=== PATIENT | female | born 1980 | race Caucasian/White ===

== ENCOUNTER 2017-03-13 19:57 | Emergency (ER) | payer OTHER ==
[~2017-03-13] VITALS: Ht 157.5 cm; Wt 57.6 kg
[2017-03-13] MEDS ORDERED: ONDANSETRON PF 4 MG/2 ML VIAL. ONE (20:24)
[2017-03-13] MEDS ORDERED: IV NORMAL SALINE 1,000ML 1,000 ML IV ONE ×2 (20:45→21:45)
[2017-03-13] MEDS ORDERED: KETOROLAC 30 MG/ML VIAL. IV ONE (20:45)
[2017-03-13] MEDS ORDERED: ONDANSETRON PF 4 MG/2 ML VIAL. IV ONE (20:45)
[2017-03-13 20:52] LABS: BASO % 0 % (0-3); EOS % 0 % (0-3); HEMOGLOBIN 15.4 g/dL (12.0-15.5); LYMPH # 0.5 x10^3/uL (1.0-4.8); LYMPH % 6 % (24-48); MEAN CORPUSCULAR HEMOGLOBIN 30 pg (25-35); MEAN CORPUSCULAR HGB CONC 35 g/dL (31-37); MEAN CORPUSCULAR VOLUME 87 fL (79-100); MONO # 0.6 x10^3/uL (0.0-1.1); MONO % 7 % (0-9); NEUT # 7.4 x10^3uL (1.8-7.7); NEUT % 87 % (31-73); PLATELET COUNT 187 x10^3/uL (140-400); RED BLOOD COUNT 5.08 x10^6/uL (3.50-5.40); RED CELL DISTRIBUTION WIDTH 13.1 % (11.5-14.5); WHITE BLOOD COUNT 8.5 x10^3/uL (4.0-11.0)
[2017-03-13 20:58] LABS: ALBUMIN 4.1 g/dL (3.4-5.0); CALCIUM 8.9 mg/dL (8.5-10.1); CREATININE 0.8 mg/dL (0.6-1.0); GFR 82.1; TOTAL BILIRUBIN 0.8 mg/dL (0.2-1.0); TOTAL PROTEIN 8.1 g/dL (6.4-8.2)
[2017-03-13 21:01] LABS: POTASSIUM 2.9 mmol/L (3.5-5.1)
--- NOTE | 2017-03-13 21:31 | PHYS DOC ---
Adult General Chief Complaint Chief Complaint: ABDOMINAL PAIN HPI HPI Patient is a 36 year old female who presents with nausea & vomiting. The patient states she has been ill with sinus congestion & left ear pain beginning yesterday. Today she has sweats/chills, sore throat, nausea, vomiting, & diarrhea. She reports 3 episodes of vomiting & diarrhea prior to presentation here. She denies cough, chest pain, shortness of breath, abdominal pain, dysuria. She was seen by PCP this morning & given amoxicillin & ear drop prescriptions. She reports onset of GI symptoms after that visit, has taken 1 dose of amoxicillin today. She denies significant past medical history, reports previous appendectomy & tubal ligation. Review of Systems Review of Systems Constitutional: Reports sweats and chills Eyes: Denies drainage HENT: Reports nasal congestion and sore throat Respiratory: Denies cough or shortness of breath Cardiovascular: Denies chest pain or edema GI: Reports nausea, vomiting, diarrhea. Denies abdominal pain : Denies dysuria or hematuria Musculoskeletal: Denies back pain or joint pain Integument: Denies rash or skin lesions Neurologic: Denies headache, focal weakness or sensory changes All other systems were reviewed and found to be within normal limits, except as documented in this note. Current Medications Current Medications Current Medications Medications (Trade) Dose Ordered Sig/Daniel Start Time Stop Time Status Last Admin Dose Admin Ketorolac Tromethamine (Toradol) 30 mg 1X ONCE 03/13/17 20:45 03/13/17 20:57 DC 03/13/17 20:55 30 MG Ondansetron HCl (Zofran) 4 mg 1X ONCE 03/13/17 20:45 03/13/17 20:57 DC 03/13/17 20:32 4 MG Sodium Chloride 1,000 ml @ 1,000 mls/hr 1X ONCE 03/13/17 20:45 03/13/17 21:44 03/13/17 20:32 1,000 MLS/HR Allergies Allergies Allergies Coded Allergies Type Severity Reaction Last Updated Verified No Known Drug Allergies 03/13/17 No Physical Exam Physical Exam Constitutional: Well developed, well nourished, no acute distress, non-toxic appearance. HENT: Normocephalic, atraumatic, bilateral external ears normal, TMs clear bilaterally, EAC is erythematous on the left without drainage, oropharynx moist , posterior oropharynx mild erythema without tonsillar enlargement/exudate, no focal sinus tenderness, nose normal. Eyes: conjunctiva normal, no discharge. Neck: supple, no stridor. no meningismus Cardiovascular: RRR, no murmurs, no edema. Lungs & Thorax: LCTAB, no wheezing, no respiratory distress. Abdomen: soft, no focal abdominal tenderness with palpation, no rebound/guarding , no masses or pulsatile masses, nondistended. Skin: Warm, dry, no erythema, no rash. Back: No CVA tenderness. Extremities: No tenderness, no edema. Neurologic: Alert and oriented X 3, no focal deficits noted. Psychologic: Affect normal, judgement normal, mood normal. Current Patient Data Lab Results Laboratory Tests Test 03/13/17 20:18 03/13/17 20:25 White Blood Count 8.5 x10^3/uL (4.0-11.0) Red Blood Count 5.08 x10^6/uL (3.50-5.40) Hemoglobin 15.4 g/dL (12.0-15.5) Hematocrit 44.0 % (36.0-47.0) Mean Corpuscular Volume 87 fL (79-100) Mean Corpuscular Hemoglobin 30 pg (25-35) Mean Corpuscular Hemoglobin Concent 35 g/dL (31-37) Red Cell Distribution Width 13.1 % (11.5-14.5) Platelet Count 187 x10^3/uL (140-400) Neutrophils (%) (Auto) 87 % (31-73) H Lymphocytes (%) (Auto) 6 % (24-48) L Monocytes (%) (Auto) 7 % (0-9) Eosinophils (%) (Auto) 0 % (0-3) Basophils (%) (Auto) 0 % (0-3) Neutrophils # (Auto) 7.4 x10^3uL (1.8-7.7) Lymphocytes # (Auto) 0.5 x10^3/uL (1.0-4.8) L Monocytes # (Auto) 0.6 x10^3/uL (0.0-1.1) Eosinophils # (Auto) 0.0 x10^3/uL (0.0-0.7) Basophils # (Auto) 0.0 x10^3/uL (0.0-0.2) Sodium Level 139 mmol/L (136-145) Potassium Level 2.9 mmol/L (3.5-5.1) *L Chloride Level 102 mmol/L (98-107) Carbon Dioxide Level 24 mmol/L (21-32) Anion Gap 13 (6-14) Blood Urea Nitrogen 7 mg/dL (7-20) Creatinine 0.8 mg/dL (0.6-1.0) Estimated GFR (Cockcroft-Gault) 82.1 BUN/Creatinine Ratio 9 (6-20) Glucose Level 142 mg/dL (70-99) H Calcium Level 8.9 mg/dL (8.5-10.1) Total Bilirubin 0.8 mg/dL (0.2-1.0) Aspartate Amino Transferase (AST) 61 U/L (15-37) H Alanine Aminotransferase (ALT) 151 U/L (14-59) H Alkaline Phosphatase 156 U/L (46-116) H Total Protein 8.1 g/dL (6.4-8.2) Albumin 4.1 g/dL (3.4-5.0) Albumin/Globulin Ratio 1.0 (1.0-1.7) Lipase 104 U/L (73-393) Group A Streptococcus Rapid Negative (NEGATIVE) EKG EKG [] Radiology/Procedures Radiology/Procedures [] Course & Med Decision Making Course & Med Decision Making Pertinent Labs and Imaging studies reviewed. (See chart for details) The patient presents with illness. She was afebrile, tachycardic, low normal blood pressure. Gave IV fluids, zofran, toradol. She tested positive for influenza A. Labs showed hypokalemia & transaminitis. She denies history of liver disease. This may be related to acute viral illness but recommend follow up with PCP for repeat labs when she recovers from illness. She had no focal RUQ tenderness on exam today. She felt better after treatment here & hydration with 2L NS. With recent vomiting will give prescription for potassium replacement. We did discuss tamiflu & she wished to receive a prescription. Recommend rest, hydration, tylenol/ibuprofen for pain or fever, zofran PRN for nausea. Follow up with PCP in 2-3 days. Come back for high fever, severe pain , uncontrolled vomiting, severe shortness of breath, any otherwise worsening condition. Discharged home in stable condition. [] Dragon Disclaimer Dragon Disclaimer This electronic medical record was generated, in whole or in part, using a voice recognition dictation system. Departure Departure: Impression: Primary Impression: Influenza A Additional Impressions: Hypokalemia Transaminitis Nausea & vomiting Disposition: 01 HOME, SELF-CARE Condition: STABLE Referrals: JAMIN WATTERS MD (PCP) Patient Instructions: Influenza A (H1N1) Additional Instructions: You were seen in the emergency department today. You were diagnosed with influenza A (the flu). You may choose to take tamiflu to reduce duration/ severity of illness, but some people may choose not to take it. Your potassium was low so please take this prescribed medication. Use zofran for nausea. Please rest, drink fluids including clear liquids if nauseated/vomiting, take tylenol or ibuprofen for pain or fever. Follow up with primary care in 2-3 days if not improving. As we discussed your liver function tests were elevated today, so your doctor may recommend repeated labs when you recover from this illness. Come back for severe shortness of breath, uncontrolled vomiting, severe pain, any otherwise worsening condition. Scripts Potassium Chloride (KLOR-CON M20) 20 Meq Tab.er.prt 1 TAB PO DAILY for 4 Days, #4 TAB 3 Refills Prov: JAYLEEN PASTOR MD 03/13/17 Oseltamivir Phosphate (TAMIFLU) 75 Mg Capsule 1 CAP PO BID, #10 CAP Prov: JAYLEEN PASTOR MD 03/13/17 Ondansetron (ZOFRAN ODT) 4 Mg Tab.rapdis 1 TAB SL Q8HRS, #10 TAB Prov: JAYLEEN PASTOR MD 03/13/17 Problem Qualifiers JAYLEEN PASTOR MD Mar 13, 2017 21:31
[2017-03-13 21:34] LABS: INFLUENZA A PATIENT POSITIVE (NEGATIVE); INFLUENZA B PATIENT NEGATIVE (NEGATIVE)
[2017-03-13 21:45] LABS: BACTERIA,URINE 0 /HPF (0-FEW); BILIRUBIN,URINE NEG (NEG); CLARITY,URINE CLEAR; COLOR,URINE YELLOW; GLUCOSE,URINE NEG (NEG); NITRITE,URINE NEG (NEG); SQUAMOUS EPITHELIAL CELL,UR MANY /LPF; UROBILINOGEN,URINE 1 mg/dL (0.2 mg/dL)
[2017-03-13] MEDS ORDERED: METOCLOPRAMIDE HCL 10 MG/2 ML VIAL. IV ONE (21:45)
[2017-03-13] MEDS ORDERED: ONDA4TAB10 SL (22:02)
[2017-03-13] MEDS ORDERED: POTA20TA4 PO (22:02)
[2017-03-13] MEDS ORDERED: OSEL75CA PO (22:02)
[2017-03-13 23:09] VITALS: BP 107/47
== END 2017-03-13 23:09 | disposition home or self-care (01) ==
LOC: ER 19:57
DX: J09.X2 Influenza due to identified novel influenza A virus with other respiratory manifestations (principal); E87.6 Hypokalemia; R74.0 Nonspecific elevation of levels of transaminase and lactic acid dehydrogenase [LDH]; H92.02 Otalgia, left ear
CPT/HCPCS: 36415; 80053; 81001; 81025; 83690; 85025; 87070; 87804; 87880; 96361; 96374; 96375; 99284; J1885; J2405; J2765; J7030

== ENCOUNTER 2017-06-21 21:28 | Emergency (ER) | payer OTHER ==
[~2017-06-21] VITALS: Ht 157.5 cm; Wt 57.6 kg
[~2017-06-21 21:28] MED LIST: ONDA4TAB10 SL; OSEL75CA PO; POTA20TA4 PO
[2017-06-21] MEDS ORDERED: IV NORMAL SALINE 1,000ML 1,000 ML IV ONE (22:00)
[2017-06-21] MEDS ORDERED: MORPHINE SULFATE 4 MG/ML DISP.SYRIN. IV ONE (22:15)
[2017-06-21] MEDS ORDERED: IV NORMAL SALINE 1,000ML 1,000 ML IV SCH (22:15)
[2017-06-21] MEDS ORDERED: ONDANSETRON PF 4 MG/2 ML VIAL. IV ONE ×2 (22:15→22:30)
[2017-06-21] MEDS ORDERED: KETOROLAC 30 MG/ML VIAL. IV ONE (22:30)
[2017-06-21 22:58] LABS: ALBUMIN 4.2 g/dL (3.4-5.0); ALBUMIN/GLOBULIN RATIO 1.4 (1.0-1.7); CALCIUM 9.3 mg/dL (8.5-10.1); CREATININE 0.8 mg/dL (0.6-1.0); GFR 81.6; POTASSIUM 3.2 mmol/L (3.5-5.1); TOTAL PROTEIN 7.3 g/dL (6.4-8.2)
--- NOTE | 2017-06-21 22:58 | PHYS DOC ---
Past History Past Medical History: No Pertinent History Past Surgical History: Appendectomy, Tubal ligation Alcohol Use: Rarely Drug Use: None Adult General Chief Complaint Chief Complaint: ABDOMINAL PAIN HPI HPI 37-year-old female the past medical history of prior appendectomy now presents to the emergency department complaining of nausea vomiting and left lower quadrant abdominal pain onset about 7 PM. Patient states she was feeling well and then within a short amount of time evolved this discomfort. She denies the possibility of , pt has had her tubes tied. She has never been told she had a kidney stone. No fevers chills sweats or shaking chills. Normal bowel and bladder habits prior to onset of these symptoms. pain is not worse with movement nor is it improved. Review of Systems Review of Systems Constitutional: Denies fever or chills [] Eyes: Denies change in visual acuity, redness, or eye pain [] HENT: Denies nasal congestion or sore throat [] Respiratory: Denies cough or shortness of breath [] Cardiovascular: No additional information not addressed in HPI [] GI: Denies abdominal pain, nausea, vomiting, bloody stools or diarrhea [] : Denies dysuria or hematuria [] Musculoskeletal: Denies back pain or joint pain [] Integument: Denies rash or skin lesions [] Neurologic: Denies headache, focal weakness or sensory changes [] Endocrine: Denies polyuria or polydipsia [] All other systems were reviewed and found to be within normal limits, except as documented in this note. Current Medications Current Medications Current Medications Medications (Trade) Dose Ordered Sig/Daniel Start Time Stop Time Status Last Admin Dose Admin Ketorolac Tromethamine (Toradol) 30 mg 1X ONCE 06/21/17 22:30 06/21/17 22:31 DC 06/21/17 22:19 30 MG Morphine Sulfate (Morphine 4mg Syringe) 2 mg 1X ONCE 06/21/17 22:15 06/21/17 22:16 DC 06/21/17 22:20 2 MG Ondansetron HCl (Zofran) 4 mg 1X ONCE 06/21/17 22:30 06/21/17 22:31 DC Sodium Chloride 1,000 ml @ 1,000 mls/hr Q1H 06/21/17 22:15 Allergies Allergies Allergies Coded Allergies Type Severity Reaction Last Updated Verified No Known Drug Allergies 03/13/17 No Physical Exam Physical Exam Constitutional: Well developed, well nourished, mild distress complaining of left lower quadrant abdominal pain with nausea HENT: Normocephalic, atraumatic, bilateral external ears normal, oropharynx moist, no oral exudates, nose normal. [] Eyes: PERRLA, EOMI, conjunctiva normal, no discharge. [] Neck: Normal range of motion, no tenderness, supple, no stridor. [] Cardiovascular:Heart rate regular rhythm, no murmur [] Lungs & Thorax: Bilateral breath sounds clear to auscultation [] Abdomen: Bowel sounds normal, soft, no masses, no pulsatile masses. Left lower quadrant tenderness without guarding or rebound. No suprapubic tenderness. Normal bowel sounds. No mass or megaly appreciated. No skin changes[] Skin: Warm, dry, no erythema, no rash. [] Back: No tenderness, no CVA tenderness. [] Extremities: No tenderness, no cyanosis, no clubbing, ROM intact, no edema. [] Neurologic: Alert and oriented X 3, normal motor function, normal sensory function, no focal deficits noted. [] Psychologic: Affect normal, judgement normal, mood normal. [] Current Patient Data Vital Signs Vital Signs Date Time Temp Pulse Resp B/P (MAP) Pulse Ox O2 Delivery O2 Flow Rate FiO2 06/21/17 22:20 24 99 Room Air EKG EKG [] Radiology/Procedures Radiology/Procedures [] Course & Med Decision Making Course & Med Decision Making Pertinent Labs and Imaging studies reviewed. (See chart for details) Signs and symptoms consistent with possible renal colic versus intra-abdominal etiology for left lower quadrant abdominal pain. Patient has had tubal ligation. Urine hCG pending. Improved after analgesia with Toradol and morphine. Full labs and CT pending. Will follow radiographic results and correlate with clinical reevaluation for disposition Patient well-appearing on reevaluation. Vital signs stable. Potassium mildly low at supplemented. CAT scan unremarkable. Remainder of labs benign. No further workup or treatment indicated. Patient agrees with outpatient follow-up and strict return precautions given. Prescription for Zofran dispensed [] Dragon Disclaimer Dragon Disclaimer This electronic medical record was generated, in whole or in part, using a voice recognition dictation system. Departure Departure: Impression: Primary Impression: Abdominal pain Additional Impressions: Nausea & vomiting Hypokalemia Disposition: HOME, SELF-CARE Condition: GOOD Referrals: JAMIN WATTERS MD (PCP) Patient Instructions: Abdominal Pain (Nonspecific) Additional Instructions: It is not clear what has been causing your abdominal pain with nausea and vomiting. You do not have evidence of an abdominal emergency on your CAT scan. Your potassium was mildly low and this was supplemented. Take ibuprofen and Tylenol as needed for any discomfort. Use Zofran 1 pill under your tongue every 4 hours as needed for nausea. Follow-up with your doctor today and return immediately for new severe worsening symptoms Scripts Ondansetron (ZOFRAN ODT) 4 Mg Tab.rapdis 1 TAB SL Q4HRS, #15 TAB Prov: KEVEN PIERSON MD 06/22/17 Problem Qualifiers KEVEN PIERSON MD Jun 21, 2017 22:58
[2017-06-21 23:12] LABS: BASO % 0 % (0-3); EOS # 0.1 x10^3/uL (0.0-0.7); EOS % 1 % (0-3); HEMATOCRIT 42.3 % (36.0-47.0); HEMOGLOBIN 14.7 g/dL (12.0-15.5); LYMPH # 1.2 x10^3/uL (1.0-4.8); LYMPH % 12 % (24-48); MEAN CORPUSCULAR HEMOGLOBIN 30 pg (25-35); MEAN CORPUSCULAR HGB CONC 35 g/dL (31-37); MEAN CORPUSCULAR VOLUME 87 fL (79-100); MONO # 0.5 x10^3/uL (0.0-1.1); MONO % 5 % (0-9); NEUT # 8.3 x10^3uL (1.8-7.7); NEUT % 83 % (31-73); PLATELET COUNT 213 x10^3/uL (140-400); RED BLOOD COUNT 4.88 x10^6/uL (3.50-5.40); RED CELL DISTRIBUTION WIDTH 13.1 % (11.5-14.5); WHITE BLOOD COUNT 10.1 x10^3/uL (4.0-11.0)
[2017-06-21] MEDS ORDERED: IOHEXOL 300 MG/ML 75 ML VIAL. IV ONE (23:30)
[2017-06-21] MEDS ORDERED: CONTRAST GIVEN MC PRN (23:30)
--- NOTE | 2017-06-22 00:02 | RAD ---
CT abdomen and pelvis without contrast 06/21/2017 Clinical indication: Left lower quadrant abdominal pain. COMPARISON: None. TECHNIQUE: Multiple CT images of the abdomen and pelvis were obtained without contrast. *One or more of the following individualized dose reduction techniques were utilized for this examination: 1. Automated exposure control. 2. Adjustment of the mA and/or kV according to patient size. 3. Use of iterative reconstruction technique. FINDINGS: Heart size is normal. Visualized lung bases are clear. Evaluation of the solid abdominal pelvic viscera, lymphadenopathy and vasculature is limited in the absence of intravenous contrast. Unenhanced contours of the liver, gallbladder, spleen, adrenal glands, pancreas and kidneys are grossly unremarkable. No hydronephrosis or nephrolithiasis. Abdominal aorta is normal in caliber. Postsurgical changes of an appendectomy. Small and large bowel loops are normal in caliber without obstruction. No abdominal free fluid. No pneumoperitoneum. Urinary bladder unremarkable. There is a retroflexed uterus grossly unremarkable. No pelvic free fluid. There are no destructive osseous lesions. IMPRESSION: No noncontrast CT evidence of acute abdominal or pelvic process. Electronically signed by: Ruy Ross MD (06/21/2017 11:58 PM) [facility]
[2017-06-22 00:29] LABS: BILIRUBIN,URINE NEG (NEG); CLARITY,URINE HAZY; COLOR,URINE YELLOW; GLUCOSE,URINE NEG (NEG)
[2017-06-22 00:30] LABS: BACTERIA,URINE FEW /HPF (0-FEW); NITRITE,URINE NEG (NEG); RBC,URINE 0 /HPF (0-2); SQUAMOUS EPITHELIAL CELL,UR MOD /LPF; UROBILINOGEN,URINE 0.2 mg/dL (0.2 mg/dL)
[2017-06-22] MEDS ORDERED: POTASSIUM CHLORIDE 20 MEQ TABLET.ER. PO ONE (01:00)
[2017-06-22] MEDS ORDERED: ONDA4TAB10 SL (01:09)
[2017-06-22 01:20] VITALS: BP 104/67
== END 2017-06-22 01:20 | disposition home or self-care (01) ==
LOC: ER 21:28
DX: E87.6 Hypokalemia (principal); R10.32 Left lower quadrant pain; Z90.49 Acquired absence of other specified parts of digestive tract; Z98.51 Tubal ligation status
CPT/HCPCS: 36415; 74176; 80053; 81001; 81025; 83690; 85025; 96361; 96374; 96375; 99285; J1885; J2270; J2405; J7030

== ENCOUNTER 2018-04-27 21:32 | Emergency (ER) | payer OTHER ==
[~2018-04-27] VITALS: Ht 157.5 cm; Wt 57.0 kg
[2018-04-27 21:32] VITALS: BP 109/73
[2018-04-27] MEDS ORDERED: IV RINGERS SOLUTION,LACTATED 1,000 ML IV SCH (21:42)
--- NOTE | 2018-04-27 21:42 | ED.ADGEN ---
Past History Past Medical History: No Pertinent History, Migraines Past Surgical History: No Surgical History Alcohol Use: None Drug Use: None Adult General Chief Complaint Chief Complaint ".. I was not feeling well by time I got off work.. 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 but I vomited it all up.. I had something like this last year... they never found anything.... I did have a really low potassium.... I brian hurt down here in my Lt. lower abdomen...I am on my period now..." HPI HPI Patient is a 38 year old female who presents with acute onset of left flank and lower abdomen pain with associated nausea, vomiting �7 and brown watery stools � 4. Patient has a mild migraine that started after vomiting. Patient does have a history of migraines. Patient states her headache is mild currently. 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 Patient denies travel. Patient denies trauma. No contact with poultry, amphibians, reptiles or ill animals Patient denies any specific ill contacts. Patient did not receive a flu vaccination this season. No hx of colitis, Crohn's with pt. or family. No history of colonoscopy. Patient follows with Dr. Smart. Review of Systems Review of Systems Constitutional: Denies fever or chills [] Eyes: Denies change in visual acuity, redness, or eye pain [] HENT: Denies nasal congestion or sore throat [] Respiratory: Denies cough or shortness of breath [] Cardiovascular: No additional information not addressed in HPI [] GI: complaints of generalized abdominal pain, nausea, vomiting, and diarrhea [] : Denies dysuria or hematuria [] Musculoskeletal: Denies back pain or joint pain [] Integument: Denies rash or skin lesions [] Neurologic: Denies headache, focal weakness or sensory changes [] Endocrine: Denies polyuria or polydipsia [] All other systems were reviewed and found to be within normal limits, except as documented in this note. Family History Family History Non-contributory Current Medications Current Medications Current Medications Medications (Trade) Dose Ordered Sig/Daniel Start Time Stop Time Status Last Admin Dose Admin Famotidine (Pepcid Vial) 20 mg 1X ONCE 04/27/18 22:00 04/27/18 22:10 DC 04/27/18 22:47 20 MG Ketorolac Tromethamine (Toradol 30mg Vial) 30 mg 1X ONCE 04/27/18 22:00 04/27/18 22:10 DC 04/27/18 22:46 30 MG Lactated Ringer's 1,000 ml @ 1,000 mls/hr Q1H 04/27/18 21:42 04/27/18 22:41 DC 04/27/18 21:58 1,000 MLS/HR Ondansetron HCl (Zofran) 8 mg 1X ONCE 04/27/18 22:00 04/27/18 22:10 DC 04/27/18 22:46 8 MG Potassium Chloride (KCl Oral Soln) 40 meq 1X ONCE 04/27/18 23:30 04/27/18 23:31 DC 04/27/18 23:27 40 MEQ Allergies Allergies Allergies Coded Allergies Type Severity Reaction Last Updated Verified No Known Drug Allergies 03/13/17 No Physical Exam Physical Exam Constitutional: in acute distress, non-toxic appearance. [] HENT: Normocephalic, atraumatic, bilateral external ears normal, oropharynx moist, no oral exudates, nose normal. [] Eyes: PERRLA, EOMI, conjunctiva normal, no discharge. [] Neck: Normal range of motion, no tenderness, supple, no stridor. [] Cardiovascular:Heart rate regular rhythm, no murmur [] Lungs & Thorax: Bilateral breath sounds equal apexes on auscultation [] Abdomen: Bowel sounds decreased. Rebound to Lt. flank and lower abd. No mass. Declines rectal at this time. . [] Back: No tenderness, no CVA tenderness. [] Extremities: No tenderness, no cyanosis, no clubbing, ROM intact, no edema. [] No psoas. Neurologic: Alert and oriented X 3, normal motor function, normal sensory function, no focal deficits noted. []DTR + patella and brachial. 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 Psychologic: Affect anxious, judgement normal, mood normal. [] Current Patient Data Vital Signs Vital Signs Date Time Temp Pulse Resp B/P (MAP) Pulse Ox O2 Delivery O2 Flow Rate FiO2 04/27/18 21:32 97.5 18 100 Room Air Lab Results Laboratory Tests Test 04/27/18 21:50 04/27/18 22:40 White Blood Count 9.5 x10^3/uL (4.0-11.0) Red Blood Count 4.80 x10^6/uL (3.50-5.40) Hemoglobin 14.1 g/dL (12.0-15.5) Hematocrit 41.9 % (36.0-47.0) Mean Corpuscular Volume 87 fL (79-100) Mean Corpuscular Hemoglobin 29 pg (25-35) Mean Corpuscular Hemoglobin Concent 34 g/dL (31-37) Red Cell Distribution Width 13.4 % (11.5-14.5) Platelet Count 208 x10^3/uL (140-400) Neutrophils (%) (Auto) 85 % (31-73) H Lymphocytes (%) (Auto) 10 % (24-48) L Monocytes (%) (Auto) 4 % (0-9) Eosinophils (%) (Auto) 0 % (0-3) Basophils (%) (Auto) 1 % (0-3) Neutrophils # (Auto) 8.1 x10^3uL (1.8-7.7) H Lymphocytes # (Auto) 0.9 x10^3/uL (1.0-4.8) L Monocytes # (Auto) 0.4 x10^3/uL (0.0-1.1) Eosinophils # (Auto) 0.0 x10^3/uL (0.0-0.7) Basophils # (Auto) 0.1 x10^3/uL (0.0-0.2) Prothrombin Time 10.5 SEC (9.4-11.4) Prothrombin Time INR 1.1 (0.9-1.1) PTT 27 SEC (23-33) Sodium Level 137 mmol/L (136-145) Potassium Level 3.1 mmol/L (3.5-5.1) L Chloride Level 101 mmol/L (98-107) Carbon Dioxide Level 25 mmol/L (21-32) Anion Gap 11 (6-14) Blood Urea Nitrogen 13 mg/dL (7-20) Creatinine 0.8 mg/dL (0.6-1.0) Estimated GFR (Cockcroft-Gault) 81.2 Glucose Level 133 mg/dL (70-99) H Calcium Level 8.7 mg/dL (8.5-10.1) Total Bilirubin 1.1 mg/dL (0.2-1.0) H Direct Bilirubin 0.3 mg/dL (0.0-0.2) H Aspartate Amino Transferase (AST) 15 U/L (15-37) Alanine Aminotransferase (ALT) 26 U/L (14-59) Alkaline Phosphatase 88 U/L (46-116) Creatine Kinase 98 U/L (26-192) Troponin I Quantitative < 0.017 ng/mL (0-0.055) Total Protein 7.1 g/dL (6.4-8.2) Albumin 3.8 g/dL (3.4-5.0) Amylase Level 33 U/L (25-115) Lipase 118 U/L (73-393) Influenza Type A (Rapid) Negative (NEGATIVE) Influenza Type B (Rapid) Negative (NEGATIVE) Urine Collection Type Unknown Urine Color Straw Urine Clarity Cloudy Urine pH 8.5 Urine Specific [place] 1.015 Urine Protein Trace (NEG-TRACE) Urine Glucose (UA) Neg mg/dL (NEG) Urine Ketones (Stick) 15 mg/dL (NEG) Urine Blood Large (NEG) Urine Nitrite Neg (NEG) Urine Bilirubin Neg (NEG) Urine Urobilinogen Dipstick 0.2 mg/dL (0.2 mg/dL) Urine Leukocyte Esterase Trace (NEG) Urine RBC 11-20 /HPF (0-2) Urine WBC 1-4 /HPF (0-4) Urine Squamous Epithelial Cells Few /LPF Urine Amorphous Sediment Present /HPF Urine Bacteria Few /HPF (0-FEW) Urine Opiates Screen Neg (NEG) Urine Methadone Screen Neg (NEG) Urine Barbiturates Neg (NEG) Urine Phencyclidine Screen Neg (NEG) Urine Amphetamine/Methamphetamine Neg (NEG) Urine Benzodiazepines Screen Neg (NEG) Urine Cocaine Screen Neg (NEG) Urine Cannabinoids Screen Neg (NEG) Urine Ethyl Alcohol Neg (NEG) EKG EKG [] Radiology/Procedures Radiology/Procedures My interpretation of acute abdomen chest x-ray shows no acute cardiopulmonary findings. No free air in the diaphragm. Abdomen film shows a nonobstructive bowel gas pattern. My interpretation is limited since I do not have an x-ray monitor. See formal report when available[] Course & Med Decision Making Course & Med Decision Making Pertinent Labs and Imaging studies reviewed. (See chart for details). Pt. declines further work up or CT at time discharge. Clear fluid diet only for 2 days. No solid or milk products. Push fruit juices. Tylenol and ibuprofen for discomfort. For marked discomfort may have Vicoprofen up 4 times a day. Take Zofran 8 mg up 4 times a day for nausea and vomiting. Follow-up primary care. Return if any concerns. [] Final Impression Final Impression 1. Abdomen pain 2. Nausea and vomiting[] 3 Hypokalemia Dragon Disclaimer Dragon Disclaimer This electronic medical record was generated, in whole or in part, using a voice recognition dictation system. Dragon Disclaimer This chart was dictated in whole or in part using Voice Recognition software in a busy, high-work load, and often noisy Emergency Department environment. It may contain unintended and wholly unrecognized errors or omissions. Discharge Summary Visit Information Final Diagnosis Problems Medical Problems: (1) Nausea & vomiting Status: Acute (2) Pain in the abdomen Status: Acute Brief Hospital Course Allergies Allergies Coded Allergies Type Severity Reaction Last Updated Verified No Known Drug Allergies 03/13/17 No Vital Signs Vital Signs Date Time Temp Pulse Resp B/P (MAP) Pulse Ox O2 Delivery O2 Flow Rate FiO2 04/27/18 21:32 97.5 18 100 Room Air Lab Results Laboratory Tests Test 04/27/18 21:50 04/27/18 22:40 White Blood Count 9.5 x10^3/uL (4.0-11.0) Red Blood Count 4.80 x10^6/uL (3.50-5.40) Hemoglobin 14.1 g/dL (12.0-15.5) Hematocrit 41.9 % (36.0-47.0) Mean Corpuscular Volume 87 fL (79-100) Mean Corpuscular Hemoglobin 29 pg (25-35) Mean Corpuscular Hemoglobin Concent 34 g/dL (31-37) Red Cell Distribution Width 13.4 % (11.5-14.5) Platelet Count 208 x10^3/uL (140-400) Neutrophils (%) (Auto) 85 % (31-73) Lymphocytes (%) (Auto) 10 % (24-48) Monocytes (%) (Auto) 4 % (0-9) Eosinophils (%) (Auto) 0 % (0-3) Basophils (%) (Auto) 1 % (0-3) Neutrophils # (Auto) 8.1 x10^3uL (1.8-7.7) Lymphocytes # (Auto) 0.9 x10^3/uL (1.0-4.8) Monocytes # (Auto) 0.4 x10^3/uL (0.0-1.1) Eosinophils # (Auto) 0.0 x10^3/uL (0.0-0.7) Basophils # (Auto) 0.1 x10^3/uL (0.0-0.2) Prothrombin Time 10.5 SEC (9.4-11.4) Prothromb Time International Ratio 1.1 (0.9-1.1) Activated Partial Thromboplast Time 27 SEC (23-33) Sodium Level 137 mmol/L (136-145) Potassium Level 3.1 mmol/L (3.5-5.1) Chloride Level 101 mmol/L (98-107) Carbon Dioxide Level 25 mmol/L (21-32) Anion Gap 11 (6-14) Blood Urea Nitrogen 13 mg/dL (7-20) Creatinine 0.8 mg/dL (0.6-1.0) Estimated GFR (Cockcroft-Gault) 81.2 Glucose Level 133 mg/dL (70-99) Calcium Level 8.7 mg/dL (8.5-10.1) Total Bilirubin 1.1 mg/dL (0.2-1.0) Direct Bilirubin 0.3 mg/dL (0.0-0.2) Aspartate Amino Transf (AST/SGOT) 15 U/L (15-37) Alanine Aminotransferase (ALT/SGPT) 26 U/L (14-59) Alkaline Phosphatase 88 U/L (46-116) Creatine Kinase 98 U/L (26-192) Troponin I Quantitative < 0.017 ng/mL (0-0.055) Total Protein 7.1 g/dL (6.4-8.2) Albumin 3.8 g/dL (3.4-5.0) Amylase Level 33 U/L (25-115) Lipase 118 U/L (73-393) Influenza Type A (Rapid) Negative (NEGATIVE) Influenza Type B (Rapid) Negative (NEGATIVE) Urine Collection Type Unknown Urine Color Straw Urine Clarity Cloudy Urine pH 8.5 Urine Specific [place] 1.015 Urine Protein Trace (NEG-TRACE) Urine Glucose (UA) Neg mg/dL (NEG) Urine Ketones (Stick) 15 mg/dL (NEG) Urine Blood Large (NEG) Urine Nitrite Neg (NEG) Urine Bilirubin Neg (NEG) Urine Urobilinogen Dipstick 0.2 mg/dL (0.2 mg/dL) Urine Leukocyte Esterase Trace (NEG) Urine RBC 11-20 /HPF (0-2) Urine WBC 1-4 /HPF (0-4) Urine Squamous Epithelial Cells Few /LPF Urine Amorphous Sediment Present /HPF Urine Bacteria Few /HPF (0-FEW) Urine Opiates Screen Neg (NEG) Urine Methadone Screen Neg (NEG) Urine Barbiturates Neg (NEG) Urine Phencyclidine Screen Neg (NEG) Urine Amphetamine/Methamphetamine Neg (NEG) Urine Benzodiazepines Screen Neg (NEG) Urine Cocaine Screen Neg (NEG) Urine Cannabinoids Screen Neg (NEG) Urine Ethyl Alcohol Neg (NEG) Brief Hospital Course Ms. Ashley is a 38 old female who presented with abdomen pain and acute vomiting. Discharge Information Condition at Discharge: Improved, Stable Disposition/Orders: D/C to Home Dischare Medications Current Medications Lactated Ringer's 1,000 ml @ 1,000 mls/hr Q1H IV Last administered on at 21:58; Admin Dose 1,000 MLS/HR; Start 04/27/18 at 21:42; Stop 04/27/18 at 22:41; Status DC Ondansetron HCl (Zofran) 8 mg 1X ONCE IV Last administered on 04/27/18at 22:46 ; Admin Dose 8 MG; Start 04/27/18 at 22:00; Stop 04/27/18 at 22:10; Status DC Famotidine (Pepcid Vial) 20 mg 1X ONCE IVP Last administered on 04/27/18at 22: 47; Admin Dose 20 MG; Start 04/27/18 at 22:00; Stop 04/27/18 at 22:10; Status DC Ketorolac Tromethamine (Toradol 30mg Vial) 30 mg 1X ONCE IV Last administered on 04/27/18at 22:46; Admin Dose 30 MG; Start 04/27/18 at 22:00; Stop 04/27/18 at 22:10; Status DC Potassium Chloride (KCl Oral Soln) 40 meq 1X ONCE PO Last administered on 04/27at 23:27; Admin Dose 40 MEQ; Start 04/27/18 at 23:30; Stop 04/27/18 at 23:31 ; Status DC Active Scripts Active Zofran (Ondansetron Hcl) 8 Mg Tablet 8 Mg PO QIDPRN PRN Hydrocodone-Ibuprofen 7.5-200 (Hydrocodone/Ibuprofen) 1 Each Tablet 1 Tab PO PRN Q6HRS PRN Zofran Odt (Ondansetron) 4 Mg Tab.rapdis 1 Tab SL Q4HRS Klor-Con M20 (Potassium Chloride) 20 Meq Tab.er.prt 1 Tab PO DAILY 4 Days Tamiflu (Oseltamivir Phosphate) 75 Mg Capsule 1 Cap PO BID Zofran Odt (Ondansetron) 4 Mg Tab.rapdis 1 Tab SL Q8HRS KATHY BERNAL MD Apr 27, 2018 21:42
[2018-04-27] MEDS ORDERED: ONDANSETRON PF 4 MG/2 ML VIAL. IV ONE (22:00)
[2018-04-27] MEDS ORDERED: FAMOTIDINE 20 MG/2 ML VIAL IVP ONE (22:00)
[2018-04-27] MEDS ORDERED: KETOROLAC 30 MG/ML VIAL. IV ONE (22:00)
[2018-04-27 22:09] LABS: BASO # 0.1 x10^3/uL (0.0-0.2); BASO % 1 % (0-3); EOS % 0 % (0-3); HEMATOCRIT 41.9 % (36.0-47.0); HEMOGLOBIN 14.1 g/dL (12.0-15.5); LYMPH # 0.9 x10^3/uL (1.0-4.8); LYMPH % 10 % (24-48); MEAN CORPUSCULAR HEMOGLOBIN 29 pg (25-35); MEAN CORPUSCULAR HGB CONC 34 g/dL (31-37); MEAN CORPUSCULAR VOLUME 87 fL (79-100); MONO # 0.4 x10^3/uL (0.0-1.1); MONO % 4 % (0-9); NEUT # 8.1 x10^3uL (1.8-7.7); NEUT % 85 % (31-73); PLATELET COUNT 208 x10^3/uL (140-400); RED CELL DISTRIBUTION WIDTH 13.4 % (11.5-14.5); WHITE BLOOD COUNT 9.5 x10^3/uL (4.0-11.0)
[2018-04-27 22:22] LABS: ALBUMIN 3.8 g/dL (3.4-5.0); CALCIUM 8.7 mg/dL (8.5-10.1); CREATININE 0.8 mg/dL (0.6-1.0); DIRECT BILIRUBIN 0.3 mg/dL (0.0-0.2); GFR 81.2; POTASSIUM 3.1 mmol/L (3.5-5.1); TOTAL BILIRUBIN 1.1 mg/dL (0.2-1.0); TOTAL PROTEIN 7.1 g/dL (6.4-8.2)
[2018-04-27 22:33] LABS: INFLUENZA A PATIENT NEGATIVE (NEGATIVE); INFLUENZA B PATIENT NEGATIVE (NEGATIVE)
[2018-04-27 23:04] LABS: BILIRUBIN,URINE NEG (NEG); CLARITY,URINE CLOUDY; COLOR,URINE STRAW; GLUCOSE,URINE NEG (NEG); NITRITE,URINE NEG (NEG); UROBILINOGEN,URINE 0.2 mg/dL (0.2 mg/dL)
[2018-04-27 23:05] LABS: AMORPHOUS SEDIMENT,UR PRESENT /HPF; BACTERIA,URINE FEW /HPF (0-FEW); SQUAMOUS EPITHELIAL CELL,UR FEW /LPF
[2018-04-27 23:08] LABS: BARBITURATES NEG (NEG); BENZODIAZEPINES NEG (NEG); CANNABINOIDS NEG (NEG); COCAINE NEG (NEG); METHADONE NEG (NEG); OPIATES NEG (NEG); PHENCYCLIDINE NEG (NEG)
[2018-04-27 23:11] LABS: AMPHETAMINE/METHAMPHETAMINE NEG (NEG)
[2018-04-27] MEDS ORDERED: HYDR-1179 PO (23:18)
[2018-04-27] MEDS ORDERED: ONDA8TAB9 PO (23:19)
[2018-04-27] MEDS ORDERED: POTASSIUM CHLORIDE 20 MEQ/15 ML ORAL LIQUID. PO ONE (23:30)
--- NOTE | 2018-04-28 01:25 | EKG ---
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
--- NOTE | 2018-04-28 08:58 | RAD ---
Examination: ACUTE ABDOMEN SERIES History: Abdominal pain Comparison/Correlation: None Findings: Frontal view of the chest, supine view of the abdomen, and upright view of the abdomen were obtained. Heart size and pulmonary vasculature are normal. No infiltrate or effusion. Bony structures are unremarkable. No pneumothorax. Few fluid levels are present within nondistended bowel. No obstruction or extraluminal gas. No suspicious abdominal calcification. Bony structures are unremarkable. Impression: No active thoracic disease. No suspicious abdominal process. Electronically signed by: Morgan Rey MD (04/28/2018 8:54 AM) [id number]
== END 2018-04-27 23:35 | disposition home or self-care (01) ==
LOC: ER 21:32
DX: E87.6 Hypokalemia (principal); R11.2 Nausea with vomiting, unspecified; R10.84 Generalized abdominal pain; G43.909 Migraine, unspecified, not intractable, without status migrainosus
CPT/HCPCS: 36415; 74022; 80048; 80076; 80307; 81001; 82150; 82550; 83690; 84484; 85025; 85610; 85730; 87086; 87804; 93005; 96361; 96374; 96375; 99284; J1885; J2405; J3490; J7120